=== PATIENT | male | born 1980 | race Caucasian/White ===

== ENCOUNTER 2017-09-01 12:59 | Emergency (ER) | payer SELFPAY ==
[~2017-09-01] VITALS: Ht 180.3 cm; Wt 104.0 kg
[2017-09-01 13:03] VITALS: BP 131/80
[2017-09-01] MEDS ORDERED: LIDOCAINE HCL 1% 20ML VIAL (Pyxis) INJ INFIL ONE (13:15)
[2017-09-01] MEDS ORDERED: BACITRACIN ZINC OINT UDPKT TOP ONE (13:15)
[2017-09-01] MEDS ORDERED: LIDOCAINE HCL/PF 1% 10 MG/ML 5ML VIAL IJ ONE (13:30)
== END 2017-09-01 16:16 | disposition home or self-care (01) ==
LOC: ER 13:30
DX: S51.811A Laceration without foreign body of right forearm, initial encounter (principal); W26.8XXA Contact with other sharp object(s), not elsewhere classified, initial encounter; Y93.89 Activity, other specified; Y92.812 Truck as the place of occurrence of the external cause
CPT/HCPCS: 12002; 99283; J3490

== ENCOUNTER 2017-09-10 21:34 | Emergency (ER) | payer SELFPAY ==
[~2017-09-10] VITALS: Ht 180.3 cm; Wt 105.0 kg
[2017-09-10 21:46] VITALS: BP 132/84
== END 2017-09-11 01:20 | disposition left against medical advice (07) ==
LOC: ER 22:38
DX: M79.631 Pain in right forearm (principal); Z53.21 Procedure and treatment not carried out due to patient leaving prior to being seen by health care provider